=== PATIENT | male | born 1955 | race Caucasian/White ===

== ENCOUNTER 2023-01-04 19:06 | Emergency (ER) | payer BC, SELFPAY ==
--- NOTE | 2023-01-04 19:20 | CRLHL7_ITS ---
For Patients: As a result of the Century Cures Act, medical imaging exams and procedure reports are released immediately into your electronic medical record. You may view this report before your referring provider. If you have questions, please contact your health care provider. Indication: Fall, hit back of head Technique: Volumetric multidetector CT images of the head were obtained without the administration of low osmolar intravenous contrast. Comparison: None available Findings: There is layering subacute subdural hemorrhage along the right cerebral convexity with minimal effacement of the right cerebral hemisphere. There is mild [id number] midline shift of 4.5 millimeters. There is minimal effacement of the right cerebral convexity. There is global cortical atrophy with sulcal widening and ex vacuo dilatation of the lateral ventricles. There is encephalomalacia of the lateral left frontal lobe and left temporal pole with moderate chronic small-vessel disease changes of the subcortical and periventricular white matter. The remaining brain parenchyma is preserved in attenuation and logan-white differentiation. The orbits and their contents are grossly within normal limits. Postoperative changes with adin holes in the bilateral frontal calvarium are appreciated. The paranasal sinuses are clear. The mastoid air cells are well aerated. Impression: Acute and subacute subdural hemorrhage layering along the right cerebral convexity with mild effacement of the right cerebral hemisphere and trace midline shift right to left of 4 millimeters. Posttraumatic changes of the left frontal and left temporal lobes status post craniotomy. No other acute intracranial abnormalities are identified. Findings were discussed with Pb Soria at 8:07 p.m. January 04, 20[address] note that all CT scans at this facility use dose modulation, iterative reconstruction, and/or weight-based dosing when appropriate to reduce radiation dose to as low as reasonably achievable. Dictated by John Samaniego MD @ 01/04/2023 8:07:49 PM (Electronically Signed)
[2023-01-04 19:23] VITALS: BP 138/85; PULSE 95; RESP 18; TEMP 36.7; O2SAT 99; BMI 38.4
[2023-01-04 20:14] VITALS: BP 138/87; PULSE 71; RESP 16; O2SAT 96
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
[2023-01-04 21:35] VITALS: BP 146/92; PULSE 91; RESP 16; TEMP 36.4; O2SAT 97
--- NOTE | 2023-01-04 21:37 | ED.NURSE ---
Report to [facility].
--- NOTE | 2023-01-04 21:43 | ED.NURSE ---
Patient transferred to [facility] ED via private car with significant other driving. Report to [facility] at [facility]. Patient sent with face sheet, ED transfer consent, ED visit Laura jackson note, copies of imaging and imaging disk. Per [facility] ok to defer IV at this time. Patient and spouse instructed to drive straight to [facility] ED. They verbalized understanding. GCS remains 15.
== END 2023-01-04 21:46 | disposition other institution (70) ==
PROVIDERS: Emergency Provider Emergency Medicine Emergency Medical Services; PCP Surgery
DX: S06.5X0A Traumatic subdural hemorrhage without loss of consciousness, initial encounter (principal); W00.0XXA Fall on same level due to ice and snow, initial encounter
CPT/HCPCS: 70450; 99284; 99285